=== PATIENT | male | born 1950 | race African-American/Black ===

== ENCOUNTER 2020-06-08 11:42 | Inpatient (IN) | payer MEDICARE, MEDICAID ==
[~2020-06-08] VITALS: Ht 177.8 cm; Wt 109.5 kg
[2020-06-08] MEDS ORDERED: IPRATROPIUM BROMIDE (0.02%) 0.5MG/2.5ML NEB HHN STA (12:04)
[2020-06-08] MEDS ORDERED: ALBUTEROL (0.083%) 2.5MG/3ML NEB HHN STA (12:04)
[2020-06-08] MEDS ORDERED: METHYLPREDNISOLONE SOD SUCC 125 MG/2 ML VIAL IV STA (12:04)
[2020-06-08] MEDS ORDERED: SODIUM CHLORIDE 0.9% 1,000 ML IV ONE (12:15)
[2020-06-08 13:01] LABS: BASOPHILS % 0.4 % (0.0-2.0); EOSINOPHILS % 0.1 % (0.0-5.0); HEMATOCRIT. 39.4 % (42.0-52.0); HEMOGLOBIN. 13.5 g/dL (14.0-18.0); LYMPHOCYTES % 24.7 % (20.0-50.0); MEAN CORPUSCULAR HEMOGLOBIN 29.9 pg (28.0-32.0); MEAN CORPUSCULAR VOLUME 87.3 fL (80.0-94.0); MEAN PLATELET VOLUME 7.6 fl (7.4-10.4); MONOCYTES % 7.9 % (2.0-8.0); NEUTROPHILS % 66.9 % (40.0-76.0); PLATELET 264 x1000/uL (130-400); RED BLOOD CELL COUNT 4.51 mill/uL (4.7-6.1); RED CELL DISTRIBUTION WIDTH 16.8 % (11.6-14.6)
[2020-06-08 13:08] LABS: CHLORIDE 108 mEq/L (98-107)
[2020-06-08 13:14] LABS: INR 1.1; PROTHROMBIN TIME 11.1 sec (9.6-11.0)
[2020-06-08 14:58] LABS: CLARITY URINE CLEAR (CLEAR); COLOR URINE DARK YELLOW (YELLOW); KETONES URINE TRACE (NEGATIVE); LEUKOCYTE ESTERASE URINE NEGATIVE (NEGATIVE); NITRITE URINE NEGATIVE (NEGATIVE); OCCULT BLOOD URINE TRACE (NEGATIVE); PROTEIN URINE 2+ (NEGATIVE); SPECIFIC GRAVITY URINE 1.028 (1.005-1.030); UROBILINOGEN URINE 0.2 E.U./dL (0.2-1.0)
[2020-06-08 21:00] VITALS: BP 117/78
[2020-06-08 21:52] VITALS: BP 117/78
[2020-06-09] VITALS (7 sets, daily range): BP systolic 118–151; BP diastolic 72–88
[2020-06-09] MEDS ORDERED: LIDOCAINE HCL/PF 1% 2ML VIAL ONE (08:00)
[2020-06-09] MEDS ORDERED: ENOXAPARIN 40MG/0.4ML SYR SUBCUT SCH (09:00)
[2020-06-09] MEDS: FAMOTIDINE 20MG TABLET PO SCH ×2 (10:03→20:28)
[2020-06-09] MEDS: ENOXAPARIN 30MG/0.3ML SYR SUBCUT SCH ×2 (10:04→20:29)
[2020-06-09] MEDS ORDERED: ALBUTEROL 6.7GM HFA INHALER ORI PRN (11:15)
[2020-06-09] MEDS ORDERED: LEVOFLOXACIN 500MG PREMIX 100 ML IV SCH (11:15)
[2020-06-09 11:28] LABS: BG BASE EXCESS -1.5 mmol/L (-2.0-2.0); BG CARBOXYHEMOGLOBIN 0.8 % (0.5-1.5); BG DEOXYHEMOGLOBIN 7.2 % (0.0-5.0); BG HCO3 ACT 22.3 mmol/L (22.0-26.0); BG METHEMOGLOBIN 0.2 % (0.0-1.5); BG OXYGEN SATURATION 92.7 % (92.0-98.5); BG OXYHEMOGLOBIN 91.8 % (94.0-97.0); BG PCO2 34.7 mmHg (35.0-45.0); BG PH 7.425 (7.350-7.450); BG SAMPLE SITE LEFT BRACHIAL; BG TOTAL HEMOGLOBIN 13.4 g/dL (12.0-18.0); BG VENT MODE ROOM AIR
[2020-06-09] MEDS: ACETAMINOPHEN 325MG TABLET PO PRN (13:03)
[2020-06-09] MEDS: LEVOFLOXACIN 750MG PREMIX 150 ML IV SCH (13:04)
[2020-06-09] MEDS ORDERED: DEXAMETHASONE 10 MG/ML VIAL IV NR (14:30)
[2020-06-09] MEDS ORDERED: LORAZEPAM 2MG/ML CPJ IV PRN (14:30)
[2020-06-09] MEDS ORDERED: DIPHENHYDRAMINE 50MG/ML VIAL IV PRN (14:30)
[2020-06-09] MEDS ORDERED: ONDANSETRON HCL 4MG/2ML INJ IV PRN (14:30)
[2020-06-09] MEDS ORDERED: HYDRALAZINE HCL 25MG TABLET PO PRN (14:30)
[2020-06-09] MEDS ORDERED: HYDROCODONE/ACETAMINOPHEN 5/325MG TABLET PO PRN (14:30)
[2020-06-09] MEDS: ALBUTEROL 6.7GM HFA INHALER ORI SCH (17:44)
[2020-06-09 17:51] LABS: BASOPHILS % 0.5 % (0.0-2.0); HEMATOCRIT. 35.3 % (42.0-52.0); LYMPHOCYTES % 16.4 % (20.0-50.0); MEAN CORPUSCULAR HEMOGLOBIN 29.8 pg (28.0-32.0); MEAN CORPUSCULAR VOLUME 87.5 fL (80.0-94.0); MEAN PLATELET VOLUME 8.1 fl (7.4-10.4); NEUTROPHILS % 77.1 % (40.0-76.0); PLATELET 233 x1000/uL (130-400); RED BLOOD CELL COUNT 4.03 mill/uL (4.7-6.1); RED CELL DISTRIBUTION WIDTH 16.2 % (11.6-14.6)
[2020-06-09 18:03] LABS: CHLORIDE 109 mEq/L (98-107)
[2020-06-09 18:09] LABS: LDL CHOLESTEROL 77 mg/dL (5-100)
[2020-06-09 18:11] LABS: HDL CHOLESTEROL 32 mg/dL (40-59)
[2020-06-09] MEDS ORDERED: LACTULOSE 20G/30ML UDC PO PRN (21:00)
[2020-06-10] VITALS (7 sets, daily range): BP systolic 109–136; BP diastolic 46–76
[2020-06-10] MEDS: ALBUTEROL 6.7GM HFA INHALER ORI SCH ×4 (02:20→22:20)
[2020-06-10 07:22] LABS: CHLORIDE 107 mEq/L (98-107)
[2020-06-10 07:31] LABS: BASOPHILS % 0.3 % (0.0-2.0); HEMOGLOBIN. 11.9 g/dL (14.0-18.0); LYMPHOCYTES % 14.2 % (20.0-50.0); MEAN CORPUSCULAR HEMOGLOBIN 30.1 pg (28.0-32.0); MEAN CORPUSCULAR VOLUME 85.7 fL (80.0-94.0); MEAN PLATELET VOLUME 7.4 fl (7.4-10.4); MONOCYTES % 6.6 % (2.0-8.0); NEUTROPHILS % 78.9 % (40.0-76.0); PLATELET 283 x1000/uL (130-400); RED BLOOD CELL COUNT 3.97 mill/uL (4.7-6.1)
[2020-06-10 07:35] LABS: T4 FREE 0.99 ng/dL (0.76-1.46)
[2020-06-10] MEDS: ENOXAPARIN 30MG/0.3ML SYR SUBCUT SCH ×2 (09:43→20:36)
[2020-06-10] MEDS: DEXAMETHASONE 10 MG/ML VIAL IV SCH (09:43)
[2020-06-10] MEDS: FAMOTIDINE 20MG TABLET PO SCH ×2 (09:43→20:35)
[2020-06-10] MEDS: LEVOFLOXACIN 750MG PREMIX 150 ML IV SCH (12:13)
[2020-06-11 04:00] VITALS: BP 110/53
[2020-06-11] MEDS: ALBUTEROL 6.7GM HFA INHALER ORI SCH ×4 (05:43→23:57)
[2020-06-11 07:33] LABS: HEMATOCRIT 35.3 % (42.0-52.0); HEMOGLOBIN 12.2 g/dL (14.0-18.0); MEAN CORPUSCULAR HEMOGLOBIN 29.8 pg (28.0-32.0); MEAN CORPUSCULAR VOLUME 86.3 fL (80.0-94.0); PLATELET 319 x1000/uL (130-400); RED BLOOD CELL COUNT 4.09 mill/uL (4.7-6.1); RED CELL DISTRIBUTION WIDTH 15.9 % (11.6-14.6)
[2020-06-11 07:45] LABS: CHLORIDE 105 mEq/L (98-107)
[2020-06-11 08:00] VITALS: BP 114/51
[2020-06-11] MEDS: ENOXAPARIN 30MG/0.3ML SYR SUBCUT SCH ×2 (08:13→20:22)
[2020-06-11] MEDS: DEXAMETHASONE 10 MG/ML VIAL IV SCH (08:13)
[2020-06-11] MEDS: FAMOTIDINE 20MG TABLET PO SCH ×2 (08:14→20:21)
[2020-06-11 12:00] VITALS: BP 125/63
[2020-06-11] MEDS: LEVOFLOXACIN 750MG PREMIX 150 ML IV SCH (12:04)
[2020-06-11 12:19] LABS: BG BASE EXCESS -0.8 mmol/L (-2.0-2.0); BG CARBOXYHEMOGLOBIN 0.4 % (0.5-1.5); BG DEOXYHEMOGLOBIN 5.9 % (0.0-5.0); BG FRACTION INSPIRED OXYGEN 21; BG HCO3 ACT 22.7 mmol/L (22.0-26.0); BG METHEMOGLOBIN 0.3 % (0.0-1.5); BG OXYGEN SATURATION 94.1 % (92.0-98.5); BG OXYHEMOGLOBIN 93.4 % (94.0-97.0); BG PCO2 33.9 mmHg (35.0-45.0); BG PH 7.443 (7.350-7.450); BG PO2 66.9 mmHg (75.0-100.0); BG SAMPLE SITE RIGHT BRACHIAL; BG TOTAL HEMOGLOBIN 12.8 g/dL (12.0-18.0); BG VENT MODE ROOM AIR
[2020-06-11] MEDS ORDERED: FAMO-135 PO (13:41)
[2020-06-11] MEDS ORDERED: GUAI-824 MT (13:41)
[2020-06-11] MEDS ORDERED: ALBU90AE INH (13:41)
[2020-06-11] MEDS ORDERED: DEXA6TAB MT (13:41)
[2020-06-11] MEDS ORDERED: APIX5TAB MT (13:41)
[2020-06-11] MEDS ORDERED: GUAIFENESIN 200MG/10ML SUGAR FREE UDC PO PRN (13:45)
[2020-06-11 16:00] VITALS: BP 102/41
[2020-06-11 20:05] VITALS: BP 126/79
[2020-06-11 23:48] VITALS: BP 136/76
[2020-06-12 04:00] VITALS: BP 127/52
[2020-06-12] MEDS: ALBUTEROL 6.7GM HFA INHALER ORI SCH ×4 (05:25→23:52)
[2020-06-12 08:00] VITALS: BP 128/66
[2020-06-12] MEDS: FAMOTIDINE 20MG TABLET PO SCH ×2 (08:38→20:54)
[2020-06-12] MEDS: DEXAMETHASONE 10 MG/ML VIAL IV SCH (08:38)
[2020-06-12] MEDS: ACETAMINOPHEN 325MG TABLET PO PRN (08:38)
[2020-06-12 12:00] VITALS: BP 104/46
[2020-06-12] MEDS: ENOXAPARIN 30MG/0.3ML SYR SUBCUT SCH ×2 (13:24→20:53)
[2020-06-12] MEDS: LEVOFLOXACIN 750MG PREMIX 150 ML IV SCH (13:24)
[2020-06-12 16:00] VITALS: BP 114/47
[2020-06-12 20:00] VITALS: BP 105/52
[2020-06-13] VITALS: BP 109/64
[2020-06-13 04:00] VITALS: BP 126/65
[2020-06-13] MEDS: ALBUTEROL 6.7GM HFA INHALER ORI SCH ×3 (05:07→17:39)
[2020-06-13] MEDS: ACETAMINOPHEN 325MG TABLET PO PRN (06:22)
[2020-06-13 08:00] VITALS: BP 128/69
[2020-06-13] MEDS: DEXAMETHASONE 10 MG/ML VIAL IV SCH (08:42)
[2020-06-13] MEDS: FAMOTIDINE 20MG TABLET PO SCH ×2 (08:57→20:17)
[2020-06-13] MEDS: ENOXAPARIN 30MG/0.3ML SYR SUBCUT SCH ×2 (08:58→20:18)
[2020-06-13 12:00] VITALS: BP 124/64
[2020-06-13 14:17] LABS: BASOPHILS % 0.7 % (0.0-2.0); HEMATOCRIT. 33.5 % (42.0-52.0); HEMOGLOBIN. 11.5 g/dL (14.0-18.0); LYMPHOCYTES % 8.3 % (20.0-50.0); MEAN CORPUSCULAR HEMOGLOBIN 29.8 pg (28.0-32.0); MEAN CORPUSCULAR VOLUME 86.5 fL (80.0-94.0); MEAN PLATELET VOLUME 7.5 fl (7.4-10.4); MONOCYTES % 5.4 % (2.0-8.0); NEUTROPHILS % 85.6 % (40.0-76.0); PLATELET 342 x1000/uL (130-400); RED BLOOD CELL COUNT 3.87 mill/uL (4.7-6.1); RED CELL DISTRIBUTION WIDTH 15.9 % (11.6-14.6)
[2020-06-13] MEDS: LEVOFLOXACIN 750MG PREMIX 150 ML IV SCH (15:44)
[2020-06-13 16:00] VITALS: BP 132/75
[2020-06-13 20:00] VITALS: BP 117/75
[2020-06-14] VITALS: BP 138/65
[2020-06-14] MEDS: ALBUTEROL 6.7GM HFA INHALER ORI SCH ×4 (00:08→17:03)
[2020-06-14 04:00] VITALS: BP 157/81
[2020-06-14 08:00] VITALS: BP 113/52
[2020-06-14] MEDS: FAMOTIDINE 20MG TABLET PO SCH ×2 (08:14→22:11)
[2020-06-14] MEDS: ACETAMINOPHEN 325MG TABLET PO PRN (08:15)
[2020-06-14] MEDS: ENOXAPARIN 30MG/0.3ML SYR SUBCUT SCH ×2 (08:15→22:11)
[2020-06-14] MEDS: DEXAMETHASONE 10 MG/ML VIAL IV SCH (08:15)
[2020-06-14 10:32] LABS: CHLORIDE 105 mEq/L (98-107)
[2020-06-14 12:00] VITALS: BP 147/70
[2020-06-14] MEDS: LEVOFLOXACIN 750MG PREMIX 150 ML IV SCH (12:28)
[2020-06-14 16:00] VITALS: BP 105/66
[2020-06-14 20:00] VITALS: BP_SYST 119; BP_SYST 82; BP_DIAS 41; BP_DIAS 75
[2020-06-15] VITALS: BP 122/79
[2020-06-15 04:00] VITALS: BP 103/47
[2020-06-15] MEDS: ALBUTEROL 6.7GM HFA INHALER ORI SCH ×3 (05:33→17:17)
[2020-06-15 08:00] VITALS: BP 116/68
[2020-06-15] MEDS: DEXAMETHASONE 10 MG/ML VIAL IV SCH (10:33)
[2020-06-15] MEDS: FAMOTIDINE 20MG TABLET PO SCH ×2 (10:33→22:36)
[2020-06-15] MEDS: ENOXAPARIN 30MG/0.3ML SYR SUBCUT SCH ×2 (10:37→22:36)
[2020-06-15 12:00] VITALS: BP 110/61
[2020-06-15 13:16] LABS: BASOPHILS % 0.1 % (0.0-2.0); HEMATOCRIT. 35.3 % (42.0-52.0); LYMPHOCYTES % 9.6 % (20.0-50.0); MEAN CORPUSCULAR HEMOGLOBIN 29.6 pg (28.0-32.0); MEAN PLATELET VOLUME 7.2 fl (7.4-10.4); MONOCYTES % 9.4 % (2.0-8.0); NEUTROPHILS % 80.9 % (40.0-76.0); PLATELET 419 x1000/uL (130-400); RED BLOOD CELL COUNT 4.06 mill/uL (4.7-6.1); RED CELL DISTRIBUTION WIDTH 15.9 % (11.6-14.6)
[2020-06-15 13:32] LABS: CHLORIDE 107 mEq/L (98-107)
[2020-06-15 16:00] VITALS: BP 141/76
[2020-06-15] MEDS: ACETAMINOPHEN 325MG TABLET PO PRN (16:29)
[2020-06-15 20:00] VITALS: BP 140/87
[2020-06-16] VITALS: BP 138/83
[2020-06-16] MEDS: ALBUTEROL 6.7GM HFA INHALER ORI SCH ×3 (00:30→18:00)
[2020-06-16] MEDS ORDERED: CEFTRIAXONE 1 G PREMIX 50 ML IV SCH (02:15)
[2020-06-16 04:00] VITALS: BP 114/65
[2020-06-16] MEDS: AZITHROMYCIN 500 MG in DEXT 5% WATER 250 ML IV SCH (04:15)
[2020-06-16] MEDS: CEFTRIAXONE 1,000 MG in DEXTROSE 5% WATER 50 ML IV SCH (04:15)
[2020-06-16 08:00] VITALS: BP 99/59
[2020-06-16] MEDS: DEXAMETHASONE 10 MG/ML VIAL IV SCH (09:10)
[2020-06-16] MEDS: FAMOTIDINE 20MG TABLET PO SCH (09:10)
[2020-06-16] MEDS: ENOXAPARIN 30MG/0.3ML SYR SUBCUT SCH (09:10)
[2020-06-16 12:00] VITALS: BP 97/56
[2020-06-16 16:00] VITALS: BP 92/46
[2020-06-17 00:12] VITALS: BP 105/76
[2020-06-17] MEDS: ALBUTEROL 6.7GM HFA INHALER ORI SCH ×2 (00:27→06:46)
[2020-06-17] MEDS: FAMOTIDINE 20MG TABLET PO SCH ×3 (00:27→21:09)
[2020-06-17] MEDS: ENOXAPARIN 40MG/0.4ML SYR SUBCUT SCH ×3 (00:27→21:10)
[2020-06-17 04:00] VITALS: BP 114/87
[2020-06-17 08:00] VITALS: BP 127/76
[2020-06-17] MEDS: CEFTRIAXONE 1,000 MG in DEXTROSE 5% WATER 50 ML IV SCH (08:19)
[2020-06-17] MEDS: DEXAMETHASONE 10 MG/ML VIAL IV SCH (08:19)
[2020-06-17] MEDS: AZITHROMYCIN 500 MG in DEXT 5% WATER 250 ML IV SCH (09:39)
[2020-06-17 12:00] VITALS: BP 105/72
[2020-06-17 16:00] VITALS: BP 127/72
[2020-06-17 20:00] VITALS: BP 113/70
[2020-06-17 20:55] LABS: BASOPHILS % 0.2 % (0.0-2.0); EOSINOPHILS % 0.1 % (0.0-5.0); HEMATOCRIT. 37.1 % (42.0-52.0); HEMOGLOBIN. 12.6 g/dL (14.0-18.0); LYMPHOCYTES % 13.9 % (20.0-50.0); MEAN CORPUSCULAR HEMOGLOBIN 29.5 pg (28.0-32.0); MEAN CORPUSCULAR VOLUME 86.6 fL (80.0-94.0); MEAN PLATELET VOLUME 6.7 fl (7.4-10.4); MONOCYTES % 9.4 % (2.0-8.0); NEUTROPHILS % 76.4 % (40.0-76.0); PLATELET 487 x1000/uL (130-400); RED BLOOD CELL COUNT 4.29 mill/uL (4.7-6.1); RED CELL DISTRIBUTION WIDTH 15.7 % (11.6-14.6)
[2020-06-17 22:31] LABS: CHLORIDE 108 mEq/L (98-107)
[2020-06-18] VITALS: BP 119/71
[2020-06-18] MEDS: ALBUTEROL 6.7GM HFA INHALER ORI SCH ×3 (00:08→13:19)
[2020-06-18 04:00] VITALS: BP 122/70
[2020-06-18 08:00] VITALS: BP 106/78
[2020-06-18] MEDS: FAMOTIDINE 20MG TABLET PO SCH (08:45)
[2020-06-18] MEDS: CEFTRIAXONE 1,000 MG in DEXTROSE 5% WATER 50 ML IV SCH (08:45)
[2020-06-18] MEDS: ENOXAPARIN 40MG/0.4ML SYR SUBCUT SCH (08:45)
[2020-06-18] MEDS ORDERED: DEXAMETHASONE 4MG/ML 1ML VIAL IV SCH (09:00)
[2020-06-18] MEDS ORDERED: AZITHROMYCIN 250 MG TABLET PO SCH (09:00)
[2020-06-18 12:00] VITALS: BP 116/77
[2020-06-18 14:04] VITALS: BP 116/77
[2020-06-18] MEDS ORDERED: ENOXAPARIN 30MG/0.3ML SYR SUBCUT SCH (21:00)
[2020-06-21] MEDS ORDERED: DEXAMETHASONE 4MG/ML 1ML VIAL IV SCH (09:00)
== END 2020-06-18 18:00 | disposition home or self-care (01) | DRG 177 ==
LOC: ER 11:42 → 7EST 16:14 → ENRESERV 20:28 → 7EST 21:41
PROVIDERS: ADMIT Internal Medicine; ATTEND Internal Medicine
DX: U07.1 COVID-19 (principal); J12.89 Other viral pneumonia; E66.9 Obesity, unspecified; D64.9 Anemia, unspecified; I10 Essential (primary) hypertension; R09.02 Hypoxemia; R06.03 Acute respiratory distress; K76.0 Fatty (change of) liver, not elsewhere classified; Z79.01 Long term (current) use of anticoagulants; Z79.899 Other long term (current) drug therapy; Z68.34 Body mass index [BMI] 34.0-34.9, adult; D18.03 Hemangioma of intra-abdominal structures
CPT/HCPCS: 36415; 36600; 71045; 71250; 76700; 80048; 80053; 80061; 81003; 82375; 82728; 82805; 83605; 83615; 83880; 84145; 84439; 84443; 84484; 85025; 85027; 85379; 85384; 85651; 86140; 86850; 86900; 87635; 93005; 93970; 94640; 96374; 99285; C1893; J0456; J0696; J1100; J1650; J1956; J2930; J3490; J7030; J7040; J7060

== ENCOUNTER 2024-01-18 00:22 | Emergency (ER) | payer BC, MEDICAID ==
[~2024-01-18] VITALS: Ht 177.8 cm; Wt 113.0 kg
[~2024-01-18 00:22] MED LIST: ALBU90AE INH; APIX5TAB MT; DEXA6TAB MT; FAMO-135 PO; GUAI-824 MT
[2024-01-18 00:54] VITALS: BP 164/82; PULSE 89; RESP 20; O2SAT 98
[2024-01-18 02:29] VITALS: TEMP 98.5
[2024-01-18] MEDS: ACETAMINOPHEN 500MG TABLET PO ONE (02:29)
[2024-01-18] MEDS: KETOROLAC 30MG/ML VIAL IM ONE (03:57)
[2024-01-18] MEDS ORDERED: IBUP-2028 MT (05:15)
[2024-01-18] MEDS ORDERED: LIDO700A15 TP (05:15)
== END 2024-01-18 05:30 | disposition home or self-care (01) ==
LOC: ER 00:22
DX: M19.90 Unspecified osteoarthritis, unspecified site (principal); I10 Essential (primary) hypertension; Z88.0 Allergy status to penicillin
CPT/HCPCS: 99283; 72100; 96372; J1885

== ENCOUNTER 2025-07-22 18:43 | Emergency (ER) | payer BC, MEDICAID ==
[~2025-07-22] VITALS: Ht 172.7 cm; Wt 97.0 kg
[~2025-07-22 18:43] MED LIST changes: -APIX5TAB MT; -DEXA6TAB MT; -GUAI-824 MT; +LISI10TA26 PO
[2025-07-22 18:48] VITALS: O2SAT 100
[2025-07-22] MEDS: ACETAMINOPHEN 325MG TABLET PO ONE (19:24)
[2025-07-22 19:42] LABS: CLARITY URINE CLEAR (CLEAR); COLOR URINE YELLOW (YELLOW); GLUCOSE URINE NEGATIVE (NEGATIVE); KETONES URINE NEGATIVE (NEGATIVE); LEUKOCYTE ESTERASE URINE NEGATIVE (NEGATIVE); NITRITE URINE NEGATIVE (NEGATIVE); OCCULT BLOOD URINE NEGATIVE (NEGATIVE); PH URINE 5.5 (4.5-8.0); PROTEIN URINE TRACE (NEGATIVE); SPECIFIC GRAVITY URINE 1.023 (1.005-1.030); UROBILINOGEN URINE 1.0 E.U./dL (0.2-1.0)
[2025-07-22 19:55] LABS: BASOPHILS % 0.8 % (0.0-2.0); EOSINOPHILS % 1.1 % (0.0-5.0); HEMATOCRIT. 37.3 % (42.0-52.0); HEMOGLOBIN. 12.3 g/dL (14.0-18.0); LYMPHOCYTES % 18.4 % (20.0-50.0); MEAN PLATELET VOLUME 7.6 fl (7.4-10.4); MONOCYTES % 6.1 % (2.0-8.0); NEUTROPHILS % 73.6 % (40.0-76.0); PLATELET 285 x1000/uL (130-400); RED BLOOD CELL COUNT 4.26 mill/uL (4.7-6.1); RED CELL DISTRIBUTION WIDTH 16.3 % (11.6-14.6)
[2025-07-22 19:55] LABS: *AMPHETAMINES SCREEN URINE NEGATIVE (NEGATIVE); *BARBITURATES SCREEN URINE NEGATIVE (NEGATIVE); *BENZODIAZEPINES SCREEN URINE NEGATIVE (NEGATIVE); *COCAINE SCREEN URINE NEGATIVE (NEGATIVE); METHADONE URINE SCREEN NEGATIVE (NEGATIVE); OPIATES URINE SCREEN NEGATIVE (NEGATIVE); PHENCYCLIDINE URINE SCREEN NEGATIVE (NEGATIVE)
[2025-07-22 19:56] LABS: CANNABINOID URINE SCREEN NEGATIVE (NEGATIVE); ECSTASY MDMA SCREEN URINE NEGATIVE (NEGATIVE)
[2025-07-22 20:05] LABS: BACTERIA URINE NONE SEEN; MUCUS URINE 1+ /lpf (NONE/TRACE); RBC URINE NONE SEEN /hpf (0-2); SQUAMOUS EPITHELIAL CELL URINE NONE SEEN /lpf (RARE/1+); WBC URINE 0-2 /hpf (0-2)
[2025-07-22 20:09] LABS: CREATININE 1.0 mg/dL (0.6-1.3); UREA NITROGEN BLOOD 12 mg/dL (9-23)
[2025-07-22] MEDS ORDERED: TOPUD PO (20:32)
[2025-07-22] MEDS ORDERED: IBUP-2028 MT (20:32)
[2025-07-22] MEDS: POTASSIUM CHLORIDE 20MEQ TABLET SR PO ONE (20:57)
[2025-07-22] MEDS: IBUPROFEN 400MG TABLET PO ONE (20:57)
[2025-07-22 21:03] VITALS: BP 147/68; PULSE 71; RESP 16; TEMP 36.9; O2SAT 100
== END 2025-07-22 21:54 | disposition home or self-care (01) ==
LOC: ER 18:43
DX: G44.209 Tension-type headache, unspecified, not intractable (principal); I10 Essential (primary) hypertension; M17.10 Unilateral primary osteoarthritis, unspecified knee; Z79.899 Other long term (current) drug therapy; Z96.659 Presence of unspecified artificial knee joint; Z88.0 Allergy status to penicillin; Z98.890 Other specified postprocedural states
CPT/HCPCS: 36415; 80048; 80305; 80320; 81003; 85025; 99284; G0480